=== PATIENT | female | born 1960 | race Hispanic/Latino ===

== ENCOUNTER 2017-12-21 23:41 | Observation (INO) | payer OTHER ==
[~2017-12-21] VITALS: Ht 157.5 cm; Wt 110.2 kg
[2017-12-21] MEDS ORDERED: ONDANSETRON HCL INJ 2 MG/ML VIAL IV STA (23:55)
[2017-12-22] MEDS ORDERED: NITROGLYCERIN 2% OINT 1 GM PKT TOP ONE
[2017-12-22] MEDS ORDERED: ASPIRIN 81 MG CHEW TAB PO ONE
[2017-12-22 00:26] LABS: BASOPHILS # (AUTO) 0.1 (0.0-0.1); BASOPHILS % 0.4 % (0.0-1.0); EOSINOPHILS # (AUTO) 0.1 (0.0-0.4); HEMATOCRIT 33.3 % (34.2-44.1); HEMOGLOBIN 10.2 g/dL (12.0-16.0); LYMPHOCYTES # (AUTO) 3.3 (1.0-3.2); LYMPHOCYTES % 24.8 % (18.0-39.1); MEAN CORPUSCULAR HEMOGLOBIN 26.6 pg (28-32); MEAN CORPUSCULAR HGB CONC 30.6 g/dL (31-35); MEAN CORPUSCULAR VOLUME 86.7 fL (81-99); MONOCYTES % 7.6 % (4.4-11.3); NEUTROPHILS # (AUTO) 8.9 (2.1-6.9); PLATELET COUNT 385 x10e3/uL (140-360); RED BLOOD COUNT 3.84 x10e6/uL (3.6-5.1)
[2017-12-22 00:47] LABS: BILIRUBIN,URINE 1+ (NEGATIVE); KETONES,URINE NEGATIVE (NEGATIVE); LEUKOCYTE ESTERASE ,URINE 1+ (NEGATIVE); NITRITE,URINE NEGATIVE (NEGATIVE); PROTEIN,URINE DIPSTICK NEGATIVE (NEGATIVE); URINE UROBILINOGEN 1 mg/dL (0.2 - 1)
[2017-12-22 00:48] LABS: ALANINE AMINOTRANSFERASE 16 IU/L (0-55); ALBUMIN 3.7 g/dL (3.5-5.0); ALBUMIN/GLOBULIN RATIO 1.1 (0.8-2.0); ALKALINE PHOSPHATASE 62 IU/L (40-150); AMYLASE 55 U/L (25-125); ANION GAP 12.8 mmol/L (8-16); BLOOD UREA NITROGEN 15 mg/dL (7-26); BUN/CREATININE RATIO 16 (6-25); CALCIUM 9.4 mg/dL (8.4-10.2); CARBON DIOXIDE 25 mmol/L (22-29); CHLORIDE 107 mmol/L (98-107); CREATINE KINASE 89 IU/L (29-168); CREATININE, SERUM 0.94 mg/dL (0.57-1.11); EST GLOMERULAR FILTRATION RATE > 60 ML/MIN (60-); GLUCOSE 100 mg/dL (74-118); LIPASE 59 U/L (8-78); POTASSIUM 3.8 mmol/L (3.5-5.1); SODIUM 141 mmol/L (136-145)
[2017-12-22 00:48] LABS: CLARITY,URINE SL CLOUDY (CLEAR); COLOR,URINE YELLOW (YELLOW)
[2017-12-22 00:59] LABS: BACTERIA,URINE MODERATE /HPF; EPITHELIAL CELLS,URINE FEW /LPF; MUCUS,URINE FEW (RARE); RBC,URINE 0-5 /HPF (0-5)
--- NOTE | 2017-12-22 01:29 | Diagnostic Imaging Report ---
EXAMINATION: CHEST SINGLE (PORTABLE) INDICATION: Chest pain COMPARISON: None FINDINGS: TUBES and LINES: None. LUNGS: Lungs are not well inflated. Lungs are clear. There is no evidence of pneumonia or pulmonary edema. PLEURA: No pleural effusion or pneumothorax. HEART AND MEDIASTINUM: The cardiomediastinal silhouette is unremarkable. BONES AND SOFT TISSUES: No acute osseous lesion. Soft tissues are unremarkable. UPPER ABDOMEN: No free air under the diaphragm. IMPRESSION: No acute thoracic abnormality. Signed by: Dr. Wisam Diaz M.D. on 12/22/2017 1:25 AM
[2017-12-22] MEDS ORDERED: ONDANSETRON HCL INJ 2 MG/ML VIAL IV PRN (01:45)
[2017-12-22] MEDS ORDERED: CEFTRIAXONE SOD 1 GM VIAL IV SCH (01:45)
[2017-12-22] MEDS ORDERED: MORPHINE SULFATE 2 MG/ML SYR IV PRN (01:45)
--- OUTSIDE RECORDS SUMMARY | 2017-12-22 01:45 | XMS REPORT ---
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 Allergies, Adverse Reactions, Alerts This patient has no known allergies or adverse reactions. Medications This patient has no known medications. Results Test Description Test Time Test Comments Text Results Atomic Results Result Comments CHEST SINGLE (PORTABLE) [address] [address] Patient Name: LULI FIORE MR #: [id number] : 1960 Age/Sex: 57/F Req #: [id number] Adm Physician: Ordered by: MICHELLE MARIO MD Report #: [id number] Location: ER Room/Bed: ___ Procedure: [id number] DX/CHEST SINGLE (PORTABLE) Exam Date: 12/21/17 Exam Time: 9739 REPORT STATUS: Signed EXAMINATION: CHEST SINGLE (PORTABLE) INDICATION: Chest pain COMPARISON: None FINDINGS: TUBES and LINES: None. LUNGS: Lungs are not well inflated. Lungs are clear. There is no evidence of pneumonia or pulmonary edema. PLEURA: No pleural effusion or pneumothorax. HEART AND MEDIASTINUM: The cardiomediastinal silhouette is unremarkable. BONES AND SOFT TISSUES: No acute osseous lesion. Soft tissues are unremarkable. UPPER ABDOMEN: No free air under the diaphragm. IMPRESSION: No acute thoracic abnormality. Signed by: Dr. Wisam Diaz M.D. on 12/22/2017 1:25 AM Dictated By: WISAM CAREY MD 4 Transcribed By: EASTON on 12/22/17124 COPY TO: MICHELLE MARIO MD
[2017-12-22] MEDS ORDERED: SODIUM CHLORIDE 0.9% 50ML 50 ML ONE (02:21)
[2017-12-22] MEDS ORDERED: NITROGLYCERIN 2% OINT 1 GM PKT TOP SCH (06:00)
[2017-12-22 06:13] VITALS: BP 132/64
[2017-12-22 08:00] VITALS: BP 126/70
[2017-12-22] MEDS ORDERED: ASPIRIN 81 MG ENTERIC COATED PO SCH (09:00)
[2017-12-22 10:11] LABS: CREATINE KINASE MB 1.8 ng/mL (0-5.0)
[2017-12-22] MEDS ORDERED: NITROGLYCERIN0.4 MG SL (10:29)
[2017-12-22] MEDS ORDERED: LOSARTAN POTAS100 MG PO (10:29)
[2017-12-22] MEDS ORDERED: CEFTIN250 MG/5 M PO (10:29)
[2017-12-22] MEDS ORDERED: PROTONIX40 MG PO (10:30)
[2017-12-22] MEDS ORDERED: ASPIR 8181 MG PO (10:30)
[2017-12-22] MEDS ORDERED: PANTOPRAZOLE SOD 40 MG TABEC PO ONE (10:30)
[2017-12-22] MEDS ORDERED: LOSARTAN POTASSIUM 100 MG TAB PO SCH (10:30)
--- NOTE | 2017-12-22 11:06 | History and Physical ---
CLINICAL HISTORY: This is a 57-year-old woman with a history of atrial fibrillation, status post cardioversion, and 2 ablations, admitted via the emergency room because of chest pressure lasting for approximately an hour associated with lip numbness, left shoulder positional pain, lip numbness, diaphoresis, initial left positional shoulder pains. According to the patient, she suffers from chronic osteoarthritis. Has seen a workforce investment act career manager at [facility] and getting intermittent parenteral injections. In fact, she has appointment to see her workforce investment act career manager today to receive a followup injection. She is started having left shoulder pains radiating to the mid left arm at rest. Subsequently, she felt chest pressure. She became concerned. Gay a little diaphoretic. She rated the pain 8 on a scale of 10. It lasted an hour. Ambulance was called. She was brought to the emergency room. EKG was negative. Cardiac enzymes were negative. She was found have a urinary tract infection with 11-20 wbcs per high power field and slightly elevated white count of 13,000. She was given nitroglycerin and the pain went away. She is being admitted for further evaluation and treatment. PAST MEDICAL HISTORY: Remarkable for the above-mentioned atrial fibrillation. There is also a history of hypertension treated with losartan 100 mg per day, indigestion treated with Protonix 40 mg per day. She takes aspirin a day. She is not on any anticoagulants. PERSONAL/SOCIAL HISTORY: She was a cigarette smoker. Drinks occasionally. FAMILY HISTORY: Father had hypertension. Mother had asthma. PAST SURGICAL HISTORY: Included bilateral tubal ligation, breast reduction, abdominoplasty. She has had spontaneous vaginal deliveries times 3 and a spontaneous times 2. REVIEW OF SYSTEMS: She had a stress test in the office in 1999 and was negative. Echocardiogram at that time was also relatively benign with ejection fraction of 65%. Venous Doppler of the lower extremities were negative. Her EKG had shown sinus rhythm with PVCs. IMPRESSION 1. Atypical left shoulder positional pains followed by chest pressure rated 8 on a scale of 10 lasting for approximately an hour with no associated electrocardiogram or enzyme changes. Consider coronary artery disease. It may also be due to left shoulder arthritis. She has chronic arthritis and receiving intramuscular injection by a workforce investment act career manager. 2. Chronic arthritis of undetermined type: The patient says it is perhaps osteoarthritis. 3. History of negative stress test in 1999 for chest pains. 4. History of atrial fibrillation, status post cardioversion and 2 ablations: Currently, in sinus rhythm. Maintained only on aspirin. 5. History of hypertension, on losartan. 6. Indigestion, on Protonix. 7. Anemia, hemoglobin 10.2. 8. Urinary tract infection with leukocytosis of 13,000. 9. Obesity: Status post abdominoplasty. RECOMMENDATIONS: This patient does not want to stay in the hospital for scheduled stress test, which may not occur until Monday. She wants to do the stress test on an outpatient basis. I have offered her to come to the office this afternoon to see if she could get her stress test done there. She accepts. Will check her thyroid since she has occasional bradycardia. We will possibly do an echocardiogram as an outpatient. She is discharged with Ceftin 250 mg b.i.d. for her urinary tract infection. Nitroglycerin p.r.n. She will continue on aspirin, losartan and Protonix. Job#: [id number] RI cc:AILEEN VALDERRAMA MD
--- NOTE | 2017-12-22 11:13 | Discharge Summary ---
CLINICAL HISTORY: This is a 57-year-old woman with history of atrial fibrillation and ablation who presented with left shoulder positional pains with chest pressure lasting for an hour associated with mild diaphoresis and numbness around the lips. She declined to wait for her stress test as an inpatient. She wants to go home and do the stress test on an outpatient basis. She has an appointment to see a supervisor screen making to get intramuscular injection for arthritis of the shoulder. She will come to my office for followup stress test and echocardiogram. She is being treated for a urinary tract infection with leukocytosis as well as leukosuria with Ceftin. She was given nitroglycerin as needed. Other medications include losartan 100 mg per day, Protonix 40 mg per day and a baby aspirin a day. DISCHARGE DIAGNOSES: Same as on admission. ZOE PRECIADO MD Job#: [id number] cc:AILEEN VALDERRAMA MD
[2017-12-22 12:00] VITALS: BP 136/62
[2017-12-22 13:02] LABS: THYROID STIMULATING HORMONE 0.38 uIU/mL (0.350-4.940)
[2017-12-23] MEDS ORDERED: ASPIRIN 81 MG ENTERIC COATED PO SCH (09:00)
[2017-12-23] MEDS ORDERED: ASPIRIN 325 MG TAB PO SCH (09:00)
== END 2017-12-22 12:51 | disposition home or self-care (01) ==
LOC: ER 23:41 → ERHOLD 12-22 01:42 → IMCU 12-22 04:20
PROVIDERS: ADMIT Internal Medicine Cardiovascular Disease; ATTEND Internal Medicine Cardiovascular Disease
DX: R07.89 Other chest pain (principal); N30.00 Acute cystitis without hematuria; I48.91 Unspecified atrial fibrillation; F17.210 Nicotine dependence, cigarettes, uncomplicated; M19.012 Primary osteoarthritis, left shoulder; I10 Essential (primary) hypertension; K30 Functional dyspepsia; E66.9 Obesity, unspecified; D64.9 Anemia, unspecified; Z68.41 Body mass index [BMI] 40.0-44.9, adult
CPT/HCPCS: 36415; 71045; 80053; 81001; 82150; 82550; 82553; 83690; 84436; 84443; 84479; 84484; 85025; 93005; 99284; G0378; J0696; J2405

== ENCOUNTER 2019-08-31 11:27 | Emergency (ER) | payer OTHER ==
[~2019-08-31] VITALS: Ht 157.5 cm; Wt 110.2 kg
[~2019-08-31 11:27] MED LIST: ASPIR 8181 MG PO; CEFTIN250 MG/5 M PO; LOSARTAN POTAS100 MG PO; NITROGLYCERIN0.4 MG SL; PROTONIX40 MG PO
--- NOTE | 2019-08-31 11:36 | NUR ---
PT GIVEN MASK, HARD TIME PLACING MASK ON FACE D/T HER 3 INCH NAILS ON ALL HER FINGERS....
[2019-08-31] MEDS ORDERED: ALBUTEROL SULF 0.083% NEB SOLN 3 ML NEB NEB STA (11:37)
[2019-08-31] MEDS ORDERED: IPRATROPIUM BROMIDE 0.02% 2.5 ML NEB NEB STA (11:37)
[2019-08-31] MEDS ORDERED: ACETAMINOPHEN/CODEINE ELIX 120-12 MG/5 ML UDC NG ONE (11:45)
[2019-08-31] MEDS ORDERED: DEXAMETHASONE SOD PHOS 10 MG/1 ML VIAL IM ONE (12:00)
--- NOTE | 2019-08-31 12:21 | Diagnostic Imaging Report ---
EXAMINATION: CHEST 2 VIEWS INDICATION: Cough COMPARISON: None FINDINGS: TUBES and LINES: None. Dual lead left-sided cardiac pacemaker. LUNGS: Lungs are well inflated. Lungs are clear. There is mild prominence of the central pulmonary vasculature, consistent with pulmonary venous congestion. Mild prominence of the pulmonary interstitium. PLEURA: No pleural effusion or pneumothorax. HEART AND MEDIASTINUM: Cardiac size is moderately enlarged. BONES AND SOFT TISSUES: There are degenerative changes in the thoracic spine. Remote right upper rib fractures. UPPER ABDOMEN: No free air under the diaphragm. IMPRESSION: Mild pulmonary venous congestion. Signed by: Dr. Irina Obrien M.D. on 08/31/2019 12:17 PM
== END 2019-08-31 13:44 | disposition home or self-care (01) ==
LOC: ER 11:27
DX: R05 Cough (principal); J40 Bronchitis, not specified as acute or chronic; I10 Essential (primary) hypertension; I48.91 Unspecified atrial fibrillation; K21.9 Gastro-esophageal reflux disease without esophagitis; E66.01 Morbid (severe) obesity due to excess calories; Z98.84 Bariatric surgery status; Z95.810 Presence of automatic (implantable) cardiac defibrillator
CPT/HCPCS: 71046; 94640; 99283; J1100

== ENCOUNTER 2019-09-22 23:26 | Emergency (ER) | payer OTHER ==
[~2019-09-22] VITALS: Ht 157.5 cm; Wt 110.2 kg
[2019-09-23] MEDS ORDERED: ACETAMINOPHEN/CODEINE 300MG - 30MG TAB PO ONE
[2019-09-23] MEDS ORDERED: GUAIFENESIN 200 MG/10 ML UDC PO PRN
[2019-09-23] MEDS ORDERED: LEVALBUTEROL HCL SOLN NEBU 1.25 MG/3 ML NEB INH ONE (00:15)
--- NOTE | 2019-09-23 01:01 | Diagnostic Imaging Report ---
EXAMINATION: CHEST 2 VIEWS INDICATION: ^cough/uri ^[id number] ^[id number] COMPARISON: 12/22/2017 FINDINGS: PA and lateral views TUBES and LINES: Dual-lead left chest wall cardiac device in place with distal leads projecting over right atrium and right ventricle. LUNGS: Lungs are well inflated. There is no evidence of pneumonia or pulmonary edema. PLEURA: No pleural effusion or pneumothorax. HEART AND MEDIASTINUM: The cardiomediastinal silhouette is unremarkable. BONES AND SOFT TISSUES: No acute osseous lesion. Degenerative changes of thoracic spine. Soft tissues are unremarkable. UPPER ABDOMEN: No free air under the diaphragm. IMPRESSION: No acute thoracic abnormality. Signed by: Dr. Sid Marin MD on 09/23/2019 12:58 AM
== END 2019-09-23 02:19 | disposition home or self-care (01) ==
LOC: ER 23:26
DX: R06.00 Dyspnea, unspecified (principal); R05 Cough; J44.1 Chronic obstructive pulmonary disease with (acute) exacerbation; F17.210 Nicotine dependence, cigarettes, uncomplicated
CPT/HCPCS: 71046; 94640; 99283

== ENCOUNTER 2023-03-11 12:58 | Emergency (ER) | payer OTHER ==
[~2023-03-11] VITALS: Ht 157.5 cm; Wt 118.9 kg
[2023-03-11] MEDS ORDERED: ACETAMINOPHEN 325 MG TAB PO ONE (13:30)
[2023-03-11] MEDS ORDERED: CYMBALTA30 MG PO (13:33)
[2023-03-11] MEDS ORDERED: AMLODIPINE BESY10 MG PO (13:33)
[2023-03-11] MEDS ORDERED: VITAMIN D350 MCG (13:33)
[2023-03-11] MEDS ORDERED: MONTELUKAST SOD10 MG PO (13:33)
[2023-03-11] MEDS ORDERED: FLECAINIDE ACE100 MG PO (13:33)
[2023-03-11] MEDS ORDERED: VENTOLIN HFA18 GM INH (13:33)
[2023-03-11] MEDS ORDERED: OYSTER SHELL 51 EACH PO (13:33)
[2023-03-11] MEDS ORDERED: BENZONATATE100 MG PO (13:33)
[2023-03-11] MEDS ORDERED: LOSARTAN-HCTZ1 EAC1 (13:33)
[2023-03-11] MEDS ORDERED: ELIQUIS5 MG PO (13:33)
[2023-03-11] MEDS ORDERED: CENTRUM ADULTS1 EACH PO (13:33)
[2023-03-11] MEDS ORDERED: NEURONTIN300 MG PO (13:33)
[2023-03-11] MEDS ORDERED: POTASSIUM CITR10 MEQ PO (13:33)
[2023-03-11] MEDS ORDERED: ACETAMINOPHEN 325 MG TAB ONE (13:35)
[2023-03-11 14:43] VITALS: O2SAT 96
== END 2023-03-11 14:54 | disposition home or self-care (01) ==
LOC: FSED 13:16
DX: R51.9 Headache, unspecified (principal); I10 Essential (primary) hypertension; E78.5 Hyperlipidemia, unspecified; E66.01 Morbid (severe) obesity due to excess calories; R94.31 Abnormal electrocardiogram [ECG] [EKG]
CPT/HCPCS: 70450; 93005; 99283